=== PATIENT | female | born 2000 | race Caucasian/White ===

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

== ENCOUNTER 2018-03-05 13:21 | Emergency (ER) | payer SELFPAY ==
[2018-03-05 13:42] VITALS: BP 122/69
--- NOTE | 2018-03-05 13:53 | ED ---
Throat Pain/Nasal Congestion - HPI Summary HPI Summary: 17 yr old with one week of runny nose, congestion and coughing. She also complains of mild sore throat. She has not been SOB. NO fever. She is a non smoker. - History of Current Complaint Chief Complaint: UCRespiratory Time Seen by Provider: 03/05/18 13:37 - Allergies/Home Medications Allergies/Adverse Reactions: Allergies Allergy/AdvReac Type Severity Reaction Status Date / Time environmental allergies Allergy Congestion Uncoded 03/05/18 13:37 PMH/Surg Hx/FS Hx/Imm Hx Respiratory History: Denies: Hx Asthma - Surgical History Surgery Procedure, Year, and Place: Left Elbow Fx. Repair approx 2004. Bilat Ear Tubes, T&A 2006 Infectious Disease History: No Infectious Disease History: Denies: Traveled Outside the [place] in Last 30 Days - Family History Known Family History: Positive: Other - ulcers in family Negative: Cardiac Disease, Hypertension, Diabetes - Social History Alcohol Use: None Substance Use Type: Reports: None Smoking Status (MU): Never Smoked Tobacco Type: Cigars Amount Used/How Often: 1-2 cigarelos a day Review of Systems Constitutional: Negative Eyes: Negative Positive: Sore Throat, Nasal Discharge Positive: Cough All Other Systems Reviewed And Are Negative: Yes Physical Exam Triage Information Reviewed: Yes Vital Signs On Initial Exam: Initial Vitals Temp Pulse Resp BP Pulse Ox 98.1 F 79 16 122/69 100 03/05/18 13:37 03/05/18 13:37 03/05/18 13:37 03/05/18 13:37 03/05/18 13:37 Vital Signs Reviewed: Yes Appearance: Positive: Well-Appearing, No Pain Distress Skin: Positive: Warm, Skin Color Reflects Adequate Perfusion Head/Face: Positive: Normal Head/Face Inspection Eyes: Positive: EOMI ENT: Positive: Pharyngeal erythema, Nasal congestion, Nasal drainage, TM red - left Neck: Positive: Nontender Respiratory/Lung Sounds: Positive: Clear to Auscultation, Breath Sounds Present Cardiovascular: Positive: RRR. Negative: Murmur Abdomen Description: Positive: Nontender. Negative: Distended Musculoskeletal: Positive: Strength/ROM Intact Neurological: Positive: Sensory/Motor Intact, Alert, Oriented to Person Place, Time, CN Intact II-III Psychiatric: Positive: Normal - [place] Coma Scale Best Eye Response: 4 - Spontaneous Best Motor Response: 6 - Obeys Commands Best Verbal Response: 5 - Oriented Coma Scale Total: 15 Diagnostics - Vital Signs Vital Signs Temp Pulse Resp BP Pulse Ox 03/05/18 13:37 98.1 F 79 16 122/69 100 - Laboratory Lab Statement: Any lab studies that have been ordered have been reviewed, and results considered in the medical decision making process. EENT Course/Dx - Course Course Of Treatment: 17 yr old with left OM, URI. Rx zithromax. - Diagnoses Provider Diagnoses: URI (upper respiratory infection), Otitis media Discharge - Sign-Out/Discharge Documenting (check all that apply): Patient Departure All imaging exams completed and their final reports reviewed: No Studies - Discharge Plan Condition: Good Disposition: HOME Prescriptions: Azithromycin TAB* [Zithromax TAB (Z-STEFFANY) 250 mg #6 tabs] 2 tab PO .TODAY, THEN 1 DAILY #1 steffany Patient Education Materials: Ear Infection (ED), Upper Respiratory Infection ( ED) Referrals: Nadeem MARTIN,Ryan Lewis [Primary Care Provider] - 2 Days - Billing Disposition and Condition Condition: GOOD Disposition: Home
== END 2018-03-05 14:16 | disposition home or self-care (01) ==
LOC: UCCORT 13:21
DX: J06.9 Acute upper respiratory infection, unspecified (principal); H66.92 Otitis media, unspecified, left ear
CPT/HCPCS: 99212; G0463

== ENCOUNTER 2018-04-19 11:30 | Emergency (ER) | payer MEDICAID ==
[2018-04-19 12:03] VITALS: BP 117/69
--- NOTE | 2018-04-19 12:10 | UC ---
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 SHE HAD IT EVALUATED AND WAS TOLD THE NAIL WOULD FALL OFF. THE NAIL NEVER FELL OFF AND IS CAUSING PAIN WHEN WEARING SHOES. PT ALSO NOTES THE AREA AROUND THE NAIL HAS LOOKED RED FOR ABOUT 4 MONTHS. PT DENIES FEVER OR JOINT PAIN. SHE HAD A NEGATIVE XRAY AFTER THE ORIGINAL INJURY. - History of Current Complaint Chief Complaint: UCSkin Stated Complaint: RIGHT BIG TOE COMPLAINT Time Seen by Provider: 04/19/18 12:00 Hx Obtained From: Patient Hx Last Menstrual Period: 04/11/18 Pain Intensity: 0 Associated Signs & Symptoms: Negative: Fever - Allergy/Home Medications Allergies/Adverse Reactions: Allergies Allergy/AdvReac Type Severity Reaction Status Date / Time environmental allergies Allergy Congestion Uncoded 04/19/18 12:00 PMH/Surg Hx/FS Hx/Imm Hx Previously Healthy: Yes - Surgical History Surgical History: Yes Surgery Procedure, Year, and Place: Left Elbow Fx. Repair approx 2004. Bilat Ear Tubes, T&A 2006 - Family History Known Family History: Positive: Other - ulcers in family Negative: Cardiac Disease, Hypertension, Diabetes - Social History Occupation: Employed Full-time Alcohol Use: Occasionally Substance Use Type: None Smoking Status (MU): Never Smoked Tobacco Type: Cigars Amount Used/How Often: 1-2 cigarelos a day Household Exposure Type: Cigarettes - Immunization History Vaccination Up to Date: Yes Review of Systems All Other Systems Reviewed And Are Negative: Yes Constitutional: Positive: Negative Skin: Positive: Negative Eyes: Positive: Negative ENT: Positive: Negative Respiratory: Positive: Negative Cardiovascular: Positive: Negative Gastrointestinal: Positive: Negative Genitourinary: Positive: Negative Motor: Positive: Negative Neurovascular: Positive: Negative Musculoskeletal: Positive: Negative Neurological: Positive: Negative Psychological: Positive: Negative Physical Exam Triage Information Reviewed: Yes Appearance: Well-Appearing Vital Signs: Initial Vital Signs Temp 98.2 F 04/19/18 11:58 Pulse 69 04/19/18 11:58 Resp 15 04/19/18 11:58 BP 117/69 04/19/18 11:58 Pulse Ox 100 04/19/18 11:58 Vital Signs Reviewed: Yes Eyes: Positive: Conjunctiva Clear ENT: Positive: Normal ENT inspection Neck: Positive: Supple Respiratory: Positive: Lungs clear Cardiovascular: Positive: RRR Abdomen Description: Positive: Nontender, No Organomegaly, Soft Bowel Sounds: Positive: Present Musculoskeletal: Positive: Other: - R FOOT= Nail of great toe is lifted at the proximal end and has ingrown to both side. The distal end of the nail is growing into her toe due to the proximal lifting. The toe has a mild erythema but is not tener, warm or swollen. Toe has full s/v/m function. Rest of foot is unremarkable and has full s/v/m function. Neurological: Positive: Alert Psychological: Positive: Age Appropriate Behavior Skin Exam: Normal Diagnostics - Radiology No standard instances Radiology Interpretation Completed By: Radiologist Course/Dx - Course Course Of Treatment: R foot soaked in warm soapy water pre procedure. Procedure : time out. R great toe and adjacent foot prep with betadine. Digit blocked with 2ml 2% lidocaine. Flat spoon used to gently removed that portion of nail base still adhering to nail bed which came off easliy and whole including the ingrown sides with only scant bleeding. There were 2 additonal layers of toenail that had grown over the base as well, both were removed. area cleaned with betadine again. Sterile technique was used. pt tolerated well. post procedure, foot soaked in warm water with dilute betadine then rinsed and dried. a thick layer of bacitracin and piece of sterile gauze was placed over nail bed. more bacitracin was applied to the top of toe follow by sterile gauze. - Diagnoses Provider Diagnosis: Nail avulsion of toe, Ingrown right big toenail Discharge - Sign-Out/Discharge Documenting (check all that apply): Patient Departure All imaging exams completed and their final reports reviewed: No Studies - Discharge Plan Condition: Stable Disposition: HOME Prescriptions: Cephalexin CAP* [Keflex CAP*] 500 mg PO TID 7 Days #21 cap Patient Education Materials: Nail Avulsion (ED), Nail Removal (ED) Referrals: Nadeem MARTIN,Ryan Lewis [Primary Care Provider] - 4 Days Additional Instructions: REMOVE THE PIECE OF GAUZE TONIGHT BEFORE SOAKING THE FOOT. REAPPLY A TOPICAL ANTIBIOTIC OINTMENT 1-2 X'S DAILY FOR 5-7 DAYS. - Billing Disposition and Condition Condition: STABLE Disposition: Home
[2018-04-19] MEDS ORDERED: Lidocaine 2% PF * 5 ML VIAL INJ ONE (12:15)
[2018-04-19] MEDS ORDERED: Ibuprofen ADULT LIQ* 600 MG/30 ML UDC PO ONE (13:10)
[2018-04-19] MEDS ORDERED: Cephalexin CAP* 500 MG PO ONE (13:11)
== END 2018-04-19 13:23 | disposition home or self-care (01) ==
LOC: UCCORT 11:30
DX: S91.201A Unspecified open wound of right great toe with damage to nail, initial encounter (principal); Y33.XXXA Other specified events, undetermined intent, initial encounter; Y92.9 Unspecified place or not applicable; L60.0 Ingrowing nail; F17.290 Nicotine dependence, other tobacco product, uncomplicated
CPT/HCPCS: 11730; 99212; A9270-GY; G0463

== ENCOUNTER 2018-04-22 16:02 | Emergency (ER) | payer MEDICAID ==
[2018-04-22 17:01] VITALS: BP 128/65
--- NOTE | 2018-04-22 17:30 | UC ---
Lower Extremity/Ankle HPI - HPI Summary HPI Summary: Reviewed convenient care note of 04/19: had removal of nail which had ingrown following nail bed trauma approximately one year ago. Was discharged home on cephalexin and ibuprofen liquid. Overall doing well, but came for re-check due to burning sensation in the toe in the morning. She has not been using analgesics as she lost the motrin she purchased. - History of Current Complaint Chief Complaint: UCLowerExtremity Stated Complaint: RECHECK RIGHT BIG TOE Time Seen by Provider: 04/22/18 17:22 Hx Obtained From: Patient Hx Last Menstrual Period: two wks ago ?: No Onset/Duration: Sudden Onset Severity Initially: Moderate Severity Currently: Moderate Pain Intensity: 5 Aggravating Factor(s): Standing, Ambulation Alleviating Factor(s): Rest, Elevation Able to Bear Weight: Yes - Risk Factors Gout Risk Factors: Negative DVT Risk Factors: Negative Septic Arthritis Risk Factor: Negative - Allergies/Home Medications Allergies/Adverse Reactions: Allergies Allergy/AdvReac Type Severity Reaction Status Date / Time environmental allergies Allergy Congestion Uncoded 04/22/18 16:56 PMH/Surg Hx/FS Hx/Imm Hx Previously Healthy: Yes - Surgical History Surgical History: Yes Surgery Procedure, Year, and Place: Left Elbow Fx. Repair approx 2004. Bilat Ear Tubes, T&A 2006 - Family History Known Family History: Positive: Other - ulcers in family Negative: Cardiac Disease, Hypertension, Diabetes - Social History Occupation: Employed Full-time - works at [employer] Alcohol Use: Occasionally Substance Use Type: None Smoking Status (MU): Never Smoked Tobacco Type: Cigars Amount Used/How Often: 1-2 cigarelos a day Household Exposure Type: Cigarettes - Immunization History Vaccination Up to Date: Yes Review of Systems All Other Systems Reviewed And Are Negative: Yes Constitutional: Positive: Negative Skin: Positive: Negative Eyes: Positive: Negative ENT: Positive: Negative Respiratory: Positive: Negative Cardiovascular: Positive: Negative Gastrointestinal: Positive: Negative Genitourinary: Positive: Negative Motor: Positive: Negative Neurovascular: Positive: Negative Musculoskeletal: Positive: Other: - toe pain post excision of nail Neurological: Positive: Negative Psychological: Positive: Negative Physical Exam Triage Information Reviewed: Yes Appearance: Well-Appearing, Pain Distress - mild Vital Signs: Initial Vital Signs Temp 98.3 F 04/22/18 16:57 Pulse 71 04/22/18 16:57 Resp 15 04/22/18 16:57 BP 128/65 04/22/18 16:57 Pulse Ox 100 04/22/18 16:57 ENT Exam: Normal ENT: Positive: Normal ENT inspection Respiratory: Positive: Lungs clear, Normal breath sounds Cardiovascular: Positive: RRR, No Murmur Musculoskeletal Exam: Other - right great toe with mild swelling and erythema of the distal digit, with ability to flex and extend toes. Has proximal nail growth of about 4 mm, nail bed is healing well. No purulent drainage, has healthy granulation tissue. Neurological Exam: Normal Psychological Exam: Normal Lower Extremity Course/Dx - Course Course Of Treatment: continue cephalexin for prevention of infection and ibprofen for pain, continue dressing to digit. - Differential Dx/Diagnosis Differential Diagnosis/HQI/PQRI: Other - pain post excision of nail right great toe. Provider Diagnosis: Ingrowing right great toenail Discharge - Sign-Out/Discharge Documenting (check all that apply): Patient Departure All imaging exams completed and their final reports reviewed: No Studies - Discharge Plan Condition: Stable Disposition: HOME Prescriptions: Ibuprofen 600 mg PO Q6H PRN #30 tablet PRN Reason: Pain - Moderate Patient Education Materials: Acute Wound Care (ED) Referrals: Nadeem MARTIN,Ryan Lewis [Primary Care Provider] - Additional Instructions: Continue soaking your toe in warm water and salt or Epsom salts until healing well--about another week. Continue use of neosporin on the nail bed and use of a non-stick dressing. Use ibuprofen as needed for control of pain. - Billing Disposition and Condition Condition: STABLE Disposition: Home
[2018-04-22] MEDS ORDERED: Ibuprofen TAB* 600 MG PO ONE (17:34)
== END 2018-04-22 17:51 | disposition home or self-care (01) ==
LOC: UCCORT 16:02
DX: L60.0 Ingrowing nail (principal); F17.290 Nicotine dependence, other tobacco product, uncomplicated
CPT/HCPCS: 99212; A9270-GY; G0463

== ENCOUNTER 2019-03-18 18:25 | Emergency (ER) | payer MEDICAID, OTHER ==
[2019-03-18 18:31] VITALS: BP 122/65
--- NOTE | 2019-03-18 18:46 | ED ---
HPI Chest Pain - HPI Summary HPI Summary: 18 yr old female chest pain. Onset this evening prior to coming here. 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 Denies palpitations, SOB. She is 6 months . Her pain is more mild now, but earlier 6/10,and sharp. She has never had this before. - History of Current Complaint Chief Complaint: UCChestPain Time Seen by Provider: 03/18/19 18:32 Hx Last Menstrual Period: two wks ago Pain Intensity: 5 - Allergy/Home Medications Allergies/Adverse Reactions: Allergies Allergy/AdvReac Type Severity Reaction Status Date / Time environmental allergies Allergy Congestion Uncoded 03/18/19 18:31 Home Medications: Home Medications Vits96/Iron Fum/Folic [ Tablets 27-0.8 mg] 1 tab PO DAILY 03/18 [History Confirmed 03/18/19] PMH/Surg Hx/FS Hx/Imm Hx Respiratory History: Denies: Hx Asthma - Surgical History Surgery Procedure, Year, and Place: Left Elbow Fx. Repair approx 2004. Bilat Ear Tubes, T&A 2006 Infectious Disease History: No Infectious Disease History: Denies: Traveled Outside the [place] in Last 30 Days - Family History Known Family History: Positive: Other - ulcers in family Negative: Cardiac Disease, Hypertension, Diabetes - Social History Occupation: Employed Full-time Alcohol Use: Occasionally Substance Use Type: Reports: None Smoking Status (MU): Never Smoked Tobacco Type: Cigars Amount Used/How Often: 1-2 cigarelos a day Review of Systems Constitutional: Negative Positive: Chest Pain All Other Systems Reviewed And Are Negative: Yes Physical Exam Triage Information Reviewed: Yes Vital Signs On Initial Exam: Initial Vitals Temp Pulse Resp BP Pulse Ox 98.0 F 78 16 122/65 100 03/18/19 18:26 03/18/19 18:26 03/18/19 18:26 03/18/19 18:26 03/18/19 18:26 Vital Signs Reviewed: Yes Appearance: Positive: Well-Appearing, No Pain Distress Skin: Positive: Warm, Skin Color Reflects Adequate Perfusion Head/Face: Positive: Normal Head/Face Inspection Eyes: Positive: EOMI ENT: Positive: Normal ENT inspection Neck: Positive: Nontender Respiratory/Lung Sounds: Positive: Clear to Auscultation, Breath Sounds Present Cardiovascular: Positive: RRR. Negative: Murmur Abdomen Description: Negative: Distended Musculoskeletal: Negative: Strength/ROM Intact, Edema Left, Edema Right Neurological: Positive: Sensory/Motor Intact, Alert, Oriented to Person Place, Time, CN Intact II-III, Normal Gait, Speech Normal Psychiatric: Positive: Normal Diagnostics - Vital Signs Vital Signs Temp Pulse Resp BP Pulse Ox 03/18/19 18:26 98.0 F 78 16 122/65 100 - Laboratory Lab Statement: Any lab studies that have been ordered have been reviewed, and results considered in the medical decision making process. - EKG 03/18/19 Cardiac Rate: NL EKG Rhythm: Sinus Rhythm ST Segment: Normal Ectopy: None Chest Pain Course/Dx - Course Course Of Treatment: 18 yr old with chest pain. Signed out AMA and refused to go by ambulance to the ER. Risks discussed and form signed. - Diagnoses Provider Diagnoses: Chest pain Discharge ED - Sign-Out/Discharge Documenting (check all that apply): Patient Departure All imaging exams completed and their final reports reviewed: No Studies - Discharge Plan Condition: Good Disposition: AGAINST MEDICAL ADVICE Referrals: yRan Silver PA [Primary Care Provider] - - Billing Disposition and Condition Condition: GOOD Disposition: Against Medical Advice
== END 2019-03-18 18:48 | disposition left against medical advice (07) ==
LOC: UCCORT 18:25
DX: R07.89 Other chest pain (principal); M54.9 Dorsalgia, unspecified; Z91.09 Other allergy status, other than to drugs and biological substances
CPT/HCPCS: 93005; 99212; G0463